=== PATIENT | female | born 1975 | race Caucasian/White ===

== ENCOUNTER 2017-07-15 16:30 | Emergency (ER) | payer OTHER ==
[~2017-07-15] VITALS: Ht 172.7 cm; Wt 68.0 kg
[~2017-07-15 16:30] MED LIST: CLIN100S VG; ESOM40CA PO; PENT100C PO; ROPI1TAB PO; TRET20GE2 TP
--- NOTE | 2017-07-15 17:46 | PHYS DOC ---
General Chief Complaint: VAGINAL BLEEDING Stated Complaint: VAGINAL BLEEDING Time Seen by MD: 17:08 Source: patient Exam Limitations: no limitations Problems: History of Present Illness Initial Comments Patient is a 41-year-old female who comes to the emergency department complaining of vaginal bleeding. Patient states that her last menstrual period ended July 04, she reports that she was off her menses 2 days then began bleeding vaginally. She states she 's had persistent bleeding since that time using multiple pads daily. States that the bleeding is different than her normal menses as it is odorless and bright red. She denies prior similar symptoms and denies any new dyspareunia or discharge otherwise stating that "sex always hurts" due to her history of vaginal prolapse and repair as well as interstitial cystitis. She follows with Kaelyn Brunner as primary care provider and for her women's care needs, follows with urologist at for her other urologic issues. She states she gets yearly Pap smears and denies history of abnormal in the past. She denies stating that she had a tubal ligation 16 years ago, she denies any other vaginal discharge, , or STI history. She reports that she is monogamous with male significant other who was present during history and physical exam. Patient admits to some "psychiatric issues" but refuses to discuss those. She denies any new abdominal pelvic or vaginal pains or discomfort. Denies any new symptoms with urination and denies any bowel symptoms. She reports a recent 40 pound weight loss she says may be due to cessation of Seroquel but is vague, states she has had decreased appetite. She admits to marijuana use but denies any controlled substances. Although she claims her symptoms are very severe after discussion of the workup and notification that high volume and ultrasound will be due to prolonged ED course her first questions are if she can eat. As I leave the exam room she grabs a pack of cigarettes from her purse and notifies me she is going outside to smoke while she waits. I explained to her that if she left the emergency department she would have to be registered again as a patient. I also advised her that this is a smoke-free campus and it is prohibited. Patient appears to be altered whether due to prescription or other types of substances in that she is tangential with pressured speech and flight of ideas. She does not slur but appears to be stimulated as she appears to have difficulty sitting still and is overly gratuitous. She is not inappropriate and I have to take her at her word regarding her symptoms. ED vitals: 98, 88, 111/64, 22, 97% room air Timing/Duration: constant Severity/Quality: severe Location: vaginal Radiation: none Activities at Onset: none Sexual [place] History: less than 2 months ago, single partner Modifying Factors: worse with movement (states that each time she stands or moves blood is expressed) Associated Symptoms: other Allergies: Coded Allergies: codeine (Verified Allergy, Intermediate, 07/15/17) latex (Verified Allergy, Intermediate, Rash, 02/24/15) Past Medical History Medical History: other (interstitial cystitis, hiatal hernia, vaginal prolapse status post sling repair with mesh, "psychiatric issues" patient refuses to discuss) Surgical History: other (cholecystectomy, tubal ligation, ovarian cystectomy, bladder sling, breast augmentation) Family History Significant Family History: other (patient states she is adopted and has no clue regarding her family medical history) Social History Smoker: cigarettes Alcohol: occasionally Drugs: none Review of Systems Constitutional: denies chills, denies diaphoresis, denies fever, denies malaise Respiratory: denies cough, denies shortness of breath Cardiovascular: denies chest pain, denies palpitations Gastrointestinal: see HPI, denies abdominal pain, denies diarrhea, denies nausea, denies vomiting Genitourinary: see HPI Musculoskeletal: denies back pain, denies joint swelling, denies neck pain Psychiatric/Neurological: see HPI Hematologic/Lymphatic: denies blood clots, denies easy bleeding, denies easy bruising Physical Exam General Appearance: WD/WN, no apparent distress HEENT: PERRL/EOMI, normal ENT inspection Neck: non-tender, supple Cardiovascular/Respiratory: normal peripheral pulses, normal breath sounds, no respiratory distress Gastrointestinal: normal bowel sounds, non tender, soft Pelvic: other (deferred initially by patient until results come back) Back: normal inspection, no CVA tenderness Extremities: normal range of motion, non-tender Neurologic/Psychiatric: 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 Denies suicidal or homicidal ideation and no apparent hallucinations), oriented x 3 Orders, Labs, Meds 1927: Time in department 2 hours 50 minutes. Labs are back hemoglobin stable 14.8, white blood cells 9.0, CBC and coags and BMP all normal. Ultrasound is pending, no urine submitted yet or sent to lab. Patient has a prolonged ED course due to high ED volume, radiology and laboratory delay. No new symptoms. PATIENT: JOE FISHMAN ACCOUNT: [id number] : 1975 LOCATION: ER AGE: 41 SEX: F EXAM STATUS: REG ER ORD. PHYSICIAN: LILIBETH RICCI DO REASON: vaginal bleeding PROCEDURE: US PELVIS W/TV Pelvic ultrasound to include transabdominal and transvaginal imaging 07/15/2017 CLINICAL HISTORY: Persistent vaginal bleeding. Negative test. TECHNIQUE: Using the distended urinary bladder as a sonographic window, a real-time ultrasound examination of the pelvis was performed. Additionally in an attempt to better evaluate the uterus and adnexa, a transvaginal ultrasound study was performed. Multiple images were obtained. FINDINGS: The uterus is within normal limits in size and echogenicity. It measures 9.0 x 4.3 x 3.8 cm in longitudinal, transverse, and AP dimensions. The endometrial echo complex measures 6 mm in thickness which is within normal limits. No focal abnormality of the uterus is seen. Small nabothian cysts are seen within the cervix which measure 2 mm in size. Both ovaries are within normal limits in size and echogenicity. The right ovary measures 2.9 x 1.4 x 1.3 cm in size. The left ovary measures 2.0 x 1.5 x 1.3 cm in size. No adnexal mass is seen. No free fluid is noted. IMPRESSION: Negative study. Electronically signed by: Andrea Samuels MD (07/15/2017 7:44 PM) [facility] DICTATED AND SIGNED BY: ANDREA SAMUELS MD DATE: 07/15/171941 CC: KAELYN MILES; LILIBETH RICCI DO ~ 2000: Urine has been submitted by the patient and sent to the lab, results are pending patient remained stable. 2012: Patient and her significant other wandering hallways and came into dictation office requesting my attention. They asked how much longer it would be before results were back. I advised them that the ultrasound results were back and normal as well as tests but has no urine was submitted for the first 3 hours of the ED course those studies were now pending. They agreed to return to their exam room and wait for results. Patient denied any new or changing symptoms. 2039: Urine studies are back, in the interim patient and her spouse come to the dictation office twice expressing the desire to leave and have had multiple staff members including in coming emergency room physician request if they were "okay to leave." Each time I advised that urine studies were pending but they can be discharged at any time. Urine studies to reveal blood with no evidence of infection, negative , and drug screen positive for amphetamines, benzodiazepines, and cannabinoids. There are urgently requesting immediate discharge and upon notification that urine studies were back I began working on discharge instructions as they have expressed that they do not need to speak with me regarding the results. As the patient was unwilling to discuss her "psychiatric issues" I am uncertain whether amphetamines or benzodiazepines are prescribed to the patient. 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 Departure Time of Disposition: 20:32 Disposition: 01 HOME, SELF-CARE Diagnosis: menorrhagia, tobacco abuse Condition: GOOD Patient Instructions: Menorrhagia, [id number], Smoking Cessation Additional Instructions: As discussed your ultrasound and blood work came back normal. Urine studies were positive for blood but no evidence of acute infection. Urine was negative urine drug screen was positive for amphetamines, benzodiazepines, and cannabinoids. If these medications are not prescribed is obviously recommended that you discontinue usage. Additionally is recommended to discontinue tobacco abuse as well as marijuana. Seek medical assistance if necessary. Your symptoms could be due to hormone imbalance or pre-menopause, or other unknown cause to be determined. No cause for further emergent evaluation or emergent condition is noted tonight in the emergency department and outpatient follow-up is recommended. Contact information for Dr. Garcia BILLING ADJUDICATOR specialist will be given by emergency department staff. Call tomorrow to schedule next available appointment for further evaluation and treatment of this nonemergent condition. Follow-up with Kaelyn Kaye in 7-10 days for recheck. Return to ED with new or changing symptoms. LILIBETH RICCI DO Jul 15, 2017 17:46
[2017-07-15 18:24] LABS: BASO % 0 % (0-3); EOS # 0.2 x10^3/uL (0.0-0.7); EOS % 2 % (0-3); HEMATOCRIT 43.1 % (36.0-47.0); HEMOGLOBIN 14.8 g/dL (12.0-15.5); LYMPH % 33 % (24-48); MEAN CORPUSCULAR HEMOGLOBIN 30 pg (25-35); MEAN CORPUSCULAR HGB CONC 34 g/dL (31-37); MEAN CORPUSCULAR VOLUME 87 fL (79-100); MONO # 0.6 x10^3/uL (0.0-1.1); MONO % 7 % (0-9); NEUT # 5.2 x10^3uL (1.8-7.7); NEUT % 57 % (31-73); PLATELET COUNT 299 x10^3/uL (140-400); RED BLOOD COUNT 4.94 x10^6/uL (3.50-5.40); RED CELL DISTRIBUTION WIDTH 14.2 % (11.5-14.5)
[2017-07-15 18:32] LABS: CALCIUM 8.9 mg/dL (8.5-10.1); CREATININE 0.7 mg/dL (0.6-1.0); GFR 91.8
--- NOTE | 2017-07-15 19:48 | RAD ---
Pelvic ultrasound to include transabdominal and transvaginal imaging 07/15/2017 CLINICAL HISTORY: Persistent vaginal bleeding. Negative test. TECHNIQUE: Using the distended urinary bladder as a sonographic window, a real-time ultrasound examination of the pelvis was performed. Additionally in an attempt to better evaluate the uterus and adnexa, a transvaginal ultrasound study was performed. Multiple images were obtained. FINDINGS: The uterus is within normal limits in size and echogenicity. It measures 9.0 x 4.3 x 3.8 cm in longitudinal, transverse, and AP dimensions. The endometrial echo complex measures 6 mm in thickness which is within normal limits. No focal abnormality of the uterus is seen. Small nabothian cysts are seen within the cervix which measure 2 mm in size. Both ovaries are within normal limits in size and echogenicity. The right ovary measures 2.9 x 1.4 x 1.3 cm in size. The left ovary measures 2.0 x 1.5 x 1.3 cm in size. No adnexal mass is seen. No free fluid is noted. IMPRESSION: Negative study. Electronically signed by: Andrea Samuels MD (07/15/2017 7:44 PM) [facility]
[2017-07-15 20:13] LABS: BILIRUBIN,URINE NEG (NEG); CLARITY,URINE HAZY; COLOR,URINE YELLOW; GLUCOSE,URINE NEG (NEG)
[2017-07-15 20:14] LABS: BACTERIA,URINE 0 /HPF (0-FEW); NITRITE,URINE NEG (NEG); RBC,URINE >40 /HPF (0-2); SQUAMOUS EPITHELIAL CELL,UR FEW /LPF; UROBILINOGEN,URINE 0.2 mg/dL (0.2 mg/dL); WBC,URINE 0 /HPF (0-4)
[2017-07-15 20:18] LABS: BARBITURATES NEG (NEG); BENZODIAZEPINES POS (NEG); CANNABINOIDS POS (NEG); COCAINE NEG (NEG); METHADONE NEG (NEG); OPIATES NEG (NEG); PHENCYCLIDINE NEG (NEG)
[2017-07-15 20:21] LABS: AMPHETAMINE/METHAMPHETAMINE POS (NEG)
[2017-07-15 20:30] VITALS: BP 124/67
[2017-07-15 20:51] LABS: U PREG PATIENT NEGATIVE (NEG)
== END 2017-07-15 20:50 | disposition home or self-care (01) ==
LOC: ER 16:30
DX: N92.0 Excessive and frequent menstruation with regular cycle (principal); F17.210 Nicotine dependence, cigarettes, uncomplicated; Z90.49 Acquired absence of other specified parts of digestive tract; Z98.51 Tubal ligation status; Z90.6 Acquired absence of other parts of urinary tract; Z88.5 Allergy status to narcotic agent; Z91.040 Latex allergy status
CPT/HCPCS: 36415; 76830; 76856; 80048; 80307; 81001; 81025; 85025; 85610; 85730; 99285-25; G0479

== ENCOUNTER → 2017-12-05 | Outpatient (CLI) | payer OTHER ==
--- NOTE | 2017-12-05 14:13 | RAD ---
Cervical spine, 5 views, 12/05/2017: History: Neck pain, radiculopathy There is straightening of the normal cervical lordosis. There is moderate disc space narrowing at C5-6 with endplate sclerosis and moderate marginal spurring. Mild disc space narrowing is present at C4-5 with mild spurring. There are mild degenerative changes involving scattered facet joints bilaterally. The combination of findings is causing right foraminal narrowing at C3-4, C4-5 and C5-6 and left foraminal narrowing at C5-6. No fracture or dislocation is identified. The prevertebral soft tissues are unremarkable. IMPRESSION: 1. Moderate multilevel degenerative change, particularly at the C5-6 level as described above. 2. No acute bony abnormality is detected.
== END | disposition home or self-care (01) ==
LOC: DXRAD 12:49
PROVIDERS: ATTEND Psychiatry & Neurology Neurology
DX: M47.892 Other spondylosis, cervical region (principal); F17.200 Nicotine dependence, unspecified, uncomplicated; F12.10 Cannabis abuse, uncomplicated
CPT/HCPCS: 72050

== ENCOUNTER → 2018-02-03 | Outpatient (CLI) | payer OTHER ==
[~2018-02-03] MED LIST changes: +IOHEXOL 240 MG/ML 50ML VIAL. ONE; +IOHEXOL 300 MG/ML 75 ML VIAL. IV ONE
--- NOTE | 2018-02-03 13:16 | RAD ---
CT Abdomen and Pelvis With Intravenous Contrast: History: Abdominal pain, nausea and vomiting. Comparison: None. Technique: After administration of oral and intravenous contrast, 75 mL Omnipaque-300, CT of the abdomen and pelvis was performed. Exposure: One or more of the following individualized dose reduction techniques were utilized for this examination: 1. Automated exposure control 2. Adjustment of the mA and/or kV according to patient size 3. Use of iterative reconstruction technique Findings: Visualized lower chest demonstrate bilateral breast implants, incompletely visualized and assessed. Liver, spleen, pancreas, and bilateral adrenal glands unremarkable. Gallbladder is absent. Mild intrahepatic and extrahepatic biliary dilatation is favored to be reservoir effect from patient's cholecystectomy. Bilateral kidneys enhance symmetrically. Interpolar region of the right kidney demonstrates 3 mm nonobstructive nephrolith. No bowel obstruction or inflammation is identified. Appendix is without evidence of inflammation. Urinary bladder is unremarkable. Uterus and adnexa unremarkable CT appearance. No free air or free fluid is seen in the abdomen or pelvis. Navel piercing is seen. There is a small fat-containing epigastric ventral hernia located approximately 1.5 cm superior to the umbilicus. Impression: 1. Small fat-containing periumbilical hernia. 2. No acute intraperitoneal process identified. 3. Nonobstructive right nephrolith. Electronically signed by: Clay Hardwick MD (02/03/2018 1:13 PM) [place] [id number]
== END | disposition home or self-care (01) ==
LOC: CT 09:27
PROVIDERS: ATTEND Surgery
DX: K43.9 Ventral hernia without obstruction or gangrene (principal); K42.9 Umbilical hernia without obstruction or gangrene; N20.0 Calculus of kidney; F17.200 Nicotine dependence, unspecified, uncomplicated
CPT/HCPCS: 74177; Q9966; Q9967

== ENCOUNTER 2020-04-24 18:53 | Emergency (ER) | payer OTHER ==
[~2020-04-24] VITALS: Ht 172.7 cm; Wt 64.0 kg
[~2020-04-24 18:53] MED LIST changes: -IOHEXOL 240 MG/ML 50ML VIAL. ONE; -IOHEXOL 300 MG/ML 75 ML VIAL. IV ONE
--- NOTE | 2020-04-24 18:57 | PHYS DOC ---
Past History Past Medical History: UTI, Other Past Surgical History: Cholecystectomy, Tubal ligation Alcohol Use: None Drug Use: Marijuana General Adult HPI: HPI: "..I am sure I have another UTI.. it hurts to pee...I ve had many...I almost have chronic cystitis...I ve had a bladder lift...and since then I require dilations ureter... and after antibiotics I need something for yeast... I usually follow with Alia...." Patient is a 44 year old female who presents with above hx and complaints of dysuria. Patient states symptoms are just like previous urinary tract infections. Patient denies any changes in behavior or meds. Patient has had previous extensive bladder lift surgery and he gets almost yearly dilations of urethra due to constriction. Patient denies any history of immunosuppression. Patient denies any severe ill contacts. No recent travel outside the [place] area. Has had 4 lifetime sex partners. No history of STDs. Does have occasional bacterial vaginosis. Does get yeast infections after taking antibiotics. Patient denies any vaginal discharge currently. Patient requesting antibiotics for her recurrent urinary tract infection. Review of Systems: Review of Systems: Constitutional: Denies fever or chills Eyes: Denies change in visual acuity HENT: Denies nasal congestion or sore throat Respiratory: Denies cough or shortness of breath Cardiovascular: Denies chest pain or edema GI: Denies abdominal pain, nausea, vomiting, bloody stools or diarrhea : Complains of dysuria Musculoskeletal: Denies back pain or joint pain Integument: Denies rash Neurologic: Denies headache, focal weakness or sensory changes Endocrine: Denies polyuria or polydipsia Lymphatic: Denies swollen glands Psychiatric: Denies depression or anxiety Heart Score: Risk Factors: Risk Factors: DM, Current or recent (<one month) smoker, HTN, HLP, family history of CAD, obesity. Risk Scores: Score 0 - 3: 2.5% MACE over next 6 weeks - Discharge Home Score 4 - 6: 20.3% MACE over next 6 weeks - Admit for Clinical Observation Score 7 - 10: 72.7% MACE over next 6 weeks - Early Invasive Strategies Family History: Family History: Noncontributory Current Medications: Current Meds: See nursing for home meds Allergies: Allergies: Allergies Coded Allergies Type Severity Reaction Last Updated Verified codeine Allergy Intermediate 07/15/17 Yes latex Allergy Intermediate Rash 02/24/15 Yes Physical Exam: PE: Constitutional: in acute distress, non-toxic appearance. [] HENT: Normocephalic, atraumatic, bilateral external ears normal, oropharynx moist, no oral exudates, nose normal. [] Eyes: PERRLA, EOMI, conjunctiva normal, no discharge. [] Neck: Normal range of motion, no tenderness, supple, no stridor. [] Cardiovascular:Heart rate regular rhythm, no murmur [] Lungs & Thorax: Bilateral breath sounds equal at apex on auscultation [] Abdomen: Bowel sounds normal, soft, no tenderness, no masses, no pulsatile masses. Old surgery scars. Mild suprapubic tenderness. Skin: Warm, dry, no erythema, no rash. [] Back: No tenderness, no CVA tenderness. [] Extremities: No tenderness, no cyanosis, no clubbing, ROM intact, no edema. [] No psoas sign Neurologic: Alert and oriented X 3, normal motor function, normal sensory function, no focal deficits noted. [] Psychologic: Affect anxious, judgement normal, mood normal. [] EKG: EKG: [] Radiology/Procedures: Radiology/Procedures: [] Course & Med Decision Making: Course & Med Decision Making Pertinent Labs and Imaging studies reviewed. (See chart for details) Patient keep follow-up with primary care. Patient push fluids. Patient push vitamin C drinks. Patient to expect urine to turn red with medication given tonight (Pyridium, }. Patient take Bactrim DS twice a day. Patient follow-up cultures. Patient return if any concerns. Patient take Tylenol or Profen for pain. After completing course of Bactrim patient to take Diflucan 100 mg daily for 3 days. Patient return if any concerns. Must follow-up. Impression: 1. Urinary tract infection [] Dragon Disclaimer: Mo Disclaimer: This electronic medical record was generated, in whole or in part, using a voice recognition dictation system. Departure Departure: Disposition: HOME/RESIDENCE PRIOR TO ADM Condition: STABLE Referrals: LATOYA MILES (PCP) Scripts Fluconazole (DIFLUCAN) 100 Mg Tablet 100 MG PO DAILY for post antibiotic for 3 Days, #3 TAB Prov: SORAYA PALMER MD 04/24/20 Sulfamethoxazole/Trimethoprim (BACTRIM DS TABLET) 1 Each Tablet 1 TAB PO BID for uti for 10 Days, #20 TAB 0 Refills Prov: SORAYA PALMER MD 04/24/20 Justification of Admission: Justification of Admission: Justification of Admission Dx: N/A Dragon Disclaimer This chart was dictated in whole or in part using Voice Recognition software in a busy, high-work load, and often noisy Emergency Department environment. It may contain unintended and wholly unrecognized errors or omissions. Dragon Disclaimer This chart was dictated in whole or in part using Voice Recognition software in a busy, high-work load, and often noisy Emergency Department environment. It may contain unintended and wholly unrecognized errors or omissions. SORAYA PALMER MD Apr 24, 2020 18:57
[2020-04-24 19:40] LABS: BARBITURATES NEG (NEG); BENZODIAZEPINES NEG (NEG); CANNABINOIDS POS (NEG); COCAINE NEG (NEG); METHADONE NEG (NEG); OPIATES NEG (NEG); PHENCYCLIDINE NEG (NEG)
[2020-04-24 19:41] LABS: AMPHETAMINE/METHAMPHETAMINE POS (NEG)
[2020-04-24 19:50] LABS: CLARITY,URINE HAZY; COLOR,URINE ORANGE
[2020-04-24 19:51] LABS: BACTERIA,URINE FEW /HPF (0-FEW); SQUAMOUS EPITHELIAL CELL,UR FEW /LPF; WBC,URINE >40 /HPF (0-4)
[2020-04-24] MEDS ORDERED: SULF1TAB24 PO (20:00)
[2020-04-24] MEDS ORDERED: cefTRIAXone IM 1 GM VIAL IM ONE (20:00)
[2020-04-24] MEDS ORDERED: SMZ/TMP 800/160MG TABLET. PO ONE (20:00)
[2020-04-24] MEDS ORDERED: PHENAZOPYRIDINE 200 MG TABLET. PO ONE (20:00)
[2020-04-24] MEDS ORDERED: FLUC100T7 PO (20:00)
[2020-04-24] MEDS ORDERED: HYDROcodon/IBUPROFEN 7.5/200MG 1 TAB TABLET PO ONE (20:00)
[2020-04-24 20:19] LABS: U PREG PATIENT NEGATIVE (NEG)
[2020-04-24 20:40] VITALS: BP 109/76
== END 2020-04-24 20:40 | disposition home or self-care (01) ==
LOC: ER 18:53
DX: N39.0 Urinary tract infection, site not specified (principal); Z87.440 Personal history of urinary (tract) infections; Z90.49 Acquired absence of other specified parts of digestive tract; Z98.51 Tubal ligation status; Z88.5 Allergy status to narcotic agent; Z91.040 Latex allergy status
CPT/HCPCS: 36415; 80307; 81001; 81025; 87086; 87491; 87591; 96372; 99284; J0696

== ENCOUNTER 2020-12-26 10:28 | Emergency (ER) | payer OTHER ==
[~2020-12-26] VITALS: Ht 172.7 cm; Wt 79.4 kg
[~2020-12-26 10:28] MED LIST changes: +FLUC100T7 PO; +SULF1TAB24 PO
[2020-12-26 10:37] VITALS: BP 136/82
[2020-12-26] MEDS ORDERED: METH-38 PO (11:58)
[2020-12-26] MEDS ORDERED: PRED50TA PO (11:58)
--- NOTE | 2020-12-26 11:58 | PHYS DOC ---
Past History Past Medical History: UTI, Other Additional Past Medical Histor: DDD Past Surgical History: Cholecystectomy, Tubal ligation, Other Additional Past Surgical Histo: hernia repair, breast agumentation, stomach surgery Alcohol Use: None Drug Use: Marijuana Adult General Chief Complaint Chief Complaint: BACK PAIN OR INJURY [facility] HPI Patient is a 45-year-old female who presents to the emergency room complaining of lower back pain. Patient has a history of degenerative joint disease. She has been helping a friend move but has not been lifting heavy objects. She states that she has been dealing with this pain for the last 3 days and it has progressively gotten worse. She has been taking Aleve at home without any kind of relief. She is never seen orthopedic surgeon or neurosurgeon for this pain previously. She denies any difficulty with incontinence or urinary retention. She does not have any numbness. Pain does not radiate. Review of Systems Review of Systems Complete ROS is negative unless otherwise documented in HPI Current Medications Current Medications Current Medications Medications (Trade) Dose Ordered Sig/Ezequiel Start Time Stop Time Status Last Admin Dose Admin Ketorolac Tromethamine (Toradol Im) 60 mg 1X ONCE 12/26/20 12:00 12/26/20 12:01 Methocarbamol (Robaxin) 500 mg 1X PRN 12/26/20 12:00 Allergies Allergies Allergies Coded Allergies Type Severity Reaction Last Updated Verified codeine Allergy Intermediate 07/15/17 Yes latex Allergy Intermediate Rash 12/26/20 Yes Physical Exam Physical Exam General: Awake, alert, NAD. Well Nourished, well hydrated. Cooperative HEENT: Atraumatic, EOMI, PERRL, airway patent, moist oral mucosa Neck: Supple, trachea midline Respiratory: CTA bilaterally, normal effort, no wheezing/crackles CV: RRR, no murmur, cap refill <2 GI: Soft, nondistended, nontender, no masses MSK: No obvious deformities Skin: Warm, dry, intact Neuro: A&O x3, speech NL, sensory and motor grossly intact, no focal deficits, normal gait Psych: Normal affect, normal mood, not suicidal or homicidal Current Patient Data Vital Signs Vital Signs Date Time Temp Pulse Resp B/P (MAP) Pulse Ox O2 Delivery O2 Flow Rate FiO2 12/26/20 10:37 97.2 93 16 136/82 (100) 96 Room Air EKG EKG [] Radiology/Procedures Radiology/Procedures [] Heart Score C/O Chest Pain: N/A Risk Factors: Risk Factors: DM, Current or recent (<one month) smoker, HTN, HLP, family history of CAD, obesity. Risk Scores: Risk Factors: DM, Current or recent (<one month) smoker, HTN, HLP, family history of CAD, obesity. Course & Med Decision Making Course & Med Decision Making Pertinent Labs and Imaging studies reviewed. (See chart for details) Patient is a 45-year-old female who presents to the Emergency room with non- traumatic back pain. Patient denies bowel incontinence, urinary retention, fever, numbness, weakness. On exam, patient does not have a neurologic deficits, saddle anesthesia, gait difficulty, signs of trauma, or wounds near area of pain. Patient does not have a history of cancer or prolonged steroid use. At this time, patient does not have any signs, symptoms, or risk factors of emergent causes of back pain making cauda equina, spinal abscess, transverse myelitis, fractures, and other causes of emergent back pain highly unlikely. At this time, patient does not need any further work up for their back pain and will be treated symptomatically. Patient's test results and vitals while in the ED were fully reviewed and discussed with the patient. Patient is stable and at this time does not need admission to the hospital. We have discussed strict return precautions and the importance of following up with their Primary Care Physician. Patient stated understanding and was given an opportunity to ask any questions. Patient is in agreement with plan. Dragon Disclaimer Dragon Disclaimer This electronic medical record was generated, in whole or in part, using a voice recognition dictation system. Departure Departure: Impression: Primary Impression: Low back pain Disposition: 01 DC HOME SELF CARE/HOMELESS Condition: STABLE Referrals: LATOYA MILES (PCP) GILBERT LIGHT MD Patient Instructions: Low Back Sprain with [facility] Scripts Prednisone (PREDNISONE) 50 Mg Tablet 1 TAB PO DAILY for inflammation, #4 TAB You received this medication in the emergency room today. You will starting your next dose tomorrow. Prov: DARIAN OTT MD 12/26/20 Methocarbamol (ROBAXIN-750) 750 Mg Tablet 1 TAB PO BID PRN for PAIN for 10 Days, #20 TAB 0 Refills Prov: DARIAN OTT MD 12/26/20 DARIAN OTT MD Dec 26, 2020 11:58
[2020-12-26] MEDS ORDERED: KETOROLAC 60 MG/2 ML VIAL. IM ONE (12:00)
[2020-12-26] MEDS ORDERED: METHOCARBAMOL 500 MG TABLET PO PRN (12:00)
[2020-12-26] MEDS ORDERED: SUMA100T4 PO (12:12)
[2020-12-26] MEDS ORDERED: METHOCARBAMOL 500 MG TABLET PO ONE (12:15)
== END 2020-12-26 12:34 | disposition home or self-care (01) ==
LOC: ER 10:28
DX: M54.5 Low back pain (principal); Z87.440 Personal history of urinary (tract) infections; Z90.49 Acquired absence of other specified parts of digestive tract; Z98.51 Tubal ligation status; Z98.890 Other specified postprocedural states; Z88.5 Allergy status to narcotic agent; Z91.040 Latex allergy status
CPT/HCPCS: 96372; 99283; J1885

== ENCOUNTER → 2021-04-12 | Outpatient (CLI) | payer OTHER ==
[~2021-04-12] MED LIST changes: +METH-38 PO; +PRED50TA PO; +SUMA100T4 PO
--- NOTE | 2021-04-12 11:19 | RAD ---
INDICATION: Reason: SHORTNESS OF BREATH, COUGH TIMES 3 WEEKS. HX OF PNEUMONIA / Spl. Instructions: / History: COMPARISON: None. FINDINGS: 2 view of chest obtained. Degenerative changes of the spine with osteophyte formation. Cardiac silhouette unremarkable. No definite focal airspace consolidation or edema. IMPRESSION: * No focal airspace consolidation or edema. Electronically signed by: Narendra Mac MD (04/12/2021 11:17 AM) [id number]
== END ==
LOC: RAD 10:47
PROVIDERS: ATTEND Physician Assistant
DX: J40 Bronchitis, not specified as acute or chronic (principal); M25.78 Osteophyte, vertebrae
CPT/HCPCS: 71046

== ENCOUNTER 2021-04-22 02:15 | Emergency (ER) | payer OTHER ==
[~2021-04-22] VITALS: Ht 172.7 cm; Wt 79.4 kg
--- NOTE | 2021-04-22 02:51 | PHYS DOC ---
Past History Past Medical History: UTI, Other Additional Past Medical Histor: DDD, RUPTURED IMPLANT, INTERSTITIAL CYSTITIS Past Surgical History: Cholecystectomy, Tubal ligation, Other Additional Past Surgical Histo: hernia repair, breast agumentation, stomach surgery, URETHRA STRETCHED Alcohol Use: None Drug Use: Marijuana General Adult EDM: Chief Complaint: COUGH HPI: HPI: 45-year-old female presents with persistent cough. The patient was diagnosed with COVID-19 about 7 days ago. She comes in tonight because she cannot get the cough under control and is unable to fall asleep. She was not vaccinated. She denies significant shortness of breath, chest nonstop cough. No fever or chills. Review of Systems: Review of Systems: Constitutional: Denies fever or chills Eyes: Denies change in visual acuity HENT: Denies nasal congestion or sore throat Respiratory: Cough without shortness of breath Cardiovascular: Denies chest pain or edema GI: Denies abdominal pain, nausea, vomiting, bloody stools or diarrhea : Denies dysuria Musculoskeletal: Denies back pain or joint pain Integument: Denies rash Neurologic: Denies headache, focal weakness or sensory changes Endocrine: Denies polyuria or polydipsia Lymphatic: Denies swollen glands Psychiatric: Denies depression or anxiety Current Medications: Current Meds: Current Medications Medications (Trade) Dose Ordered Sig/Ezequiel Start Time Stop Time Status Last Admin Dose Admin Benzonatate (Tessalon Perle) 200 mg 1X ONCE 04/22/21 03:00 04/22/21 03:01 UNV Allergies: Allergies: Allergies Coded Allergies Type Severity Reaction Last Updated Verified codeine Allergy Intermediate 07/15/17 Yes latex Allergy Intermediate Rash 12/26/20 Yes Physical Exam: PE: Constitutional: Well developed, well nourished, no acute distress, non-toxic appearance. [] HENT: Normocephalic, atraumatic, bilateral external ears normal, oropharynx moist, no oral exudates, nose normal. [] Eyes: PERRLA, EOMI, conjunctiva normal, no discharge. [] Neck: Normal range of motion, no tenderness, supple, no stridor. [] Cardiovascular: Heart rate 94, regular rhythm, no murmur [] Lungs & Thorax: Frequent coughing [] Abdomen: Bowel sounds normal, soft, no tenderness, no masses, no pulsatile masses. [] Skin: Warm, dry, no erythema, no rash. [] Back: No tenderness, no CVA tenderness. [] Extremities: No tenderness, no cyanosis, no clubbing, ROM intact, no edema. [] Neurologic: Alert and oriented X 3, normal motor function, normal sensory functi on, no focal deficits noted. [] Psychologic: Affect normal, judgement normal, mood normal. [] Current Patient Data: Vital Signs: Vital Signs Date Time Temp Pulse Resp B/P (MAP) Pulse Ox O2 Delivery O2 Flow Rate FiO2 04/22/21 02:41 98.3 93 18 175/75 96 Room Air EKG: EKG: [] Radiology/Procedures: Radiology/Procedures: [] Impressions: EXAMINATION: Chest radiograph. VIEWS: Single view COMPARISON: 04/12/2021 INDICATION:45 years, Female, cough and congestion. FINDINGS: Normal cardiomediastinal silhouette. No focal consolidation. No pleural effusion or pneumothorax. No acute osseous process. Surgical clips in the left upper abdomen. IMPRESSION: No acute cardiopulmonary process. Electronically signed by: Bryanna Timmons MD (04/22/2021 3:10 AM) [facility] DICTATED AND SIGNED BY: BRYANNA TIMMONS MD DATE: 04/22/21309 CC: OLAF QUINTANA DO; MULU FORBES IA ~MTH0 0 Heart Score: C/O Chest Pain: N/A Risk Factors: Risk Factors: DM, Current or recent (<one month) smoker, HTN, HLP, family history of CAD, obesity. Risk Scores: Score 0 - 3: 2.5% MACE over next 6 weeks - Discharge Home Score 4 - 6: 20.3% MACE over next 6 weeks - Admit for Clinical Observation Score 7 - 10: 72.7% MACE over next 6 weeks - Early Invasive Strategies Course & Med Decision Making: Course & Med Decision Making Pertinent Labs and Imaging studies reviewed. (See chart for details) The patient's chest x-ray she is unremarkable. I have given her 200 mg of Tessalon Perles for her cough. She is allergic to codeine so I cannot give her cough syrup. The Tessalon Perles have helped a little bit. I will give her a prescription for the same. I will additionally give her 25 mg of Benadryl in the ED. She is stable for discharge at this time. [] Karthikon Disclaimer: Mo Disclaimer: This electronic medical record was generated, in whole or in part, using a voice recognition dictation system. Departure Departure: Impression: Primary Impression: COVID-19 Disposition: 01 HOME / SELF CARE / HOMELESS Condition: STABLE Referrals: MULU FORBES (PCP) Additional Instructions: You have been tested for or diagnosed with COVID-19. It is an infection caused by a new type of coronavirus. COVID-19 will cause cold-like or mild flu symptoms in most. It can cause more severe symptoms like problems breathing in some. There is no treatment for COVID-19. The body will clear the infection over time. Self-care will help to ease discomfort. Steps to Take: Self-Care Rest as needed. Healthy habits may help you feel better. Steps include: Choose healthy foods including fruits and vegetables. Drink water throughout the day. Get plenty of sleep each night. If you smoke, try to quit. It may ease breathing. Avoid alcohol. Keep Others Healthy The virus can spread to others. Droplets are released every time you sneeze or cough. The droplets can get into the mouth, nose, or eyes of people near you and lead to infection. To lower the chances of spreading COVID-19 to others: Stay at home until your doctor has said it is safe to leave. If you tested positive this will mean staying isolated until both of the following are true: At least 7 days have passed since the start of illness. You are free of fever for at least 72 hours without the use of medicine. During this time: - Avoid public areas, events, or transportation. Do not return to work or school until your doctor has said it is safe to do so. - Call ahead if you need to go to a medical center. Let them know you may have COVID-19. It will help them guide you where to go. They may also ask you to wear a facemask when you come to the office. - If you call for emergency medical services, let them know you may have COVID- 19. While at home: - Try to avoid close contact with others. Stay about 6 feet away. - If possible, spend most of your time in a separate room from others. - Use a face mask if you will be in close contact with others such as sharing a room or vehicle. - Have someone wipe down common surfaces in the home. Use household data communications engineer every day on areas like doorknobs, counters, or sinks. - Cough or sneeze into a tissue. Throw the tissue away right after use. If a tissue is not available, cough or sneeze into your elbow. - Wash your hands often. Wash them after sneezing or coughing. Use soap and water and wash for at least 20 seconds. Alcohol based hand bus cleaner can be used if soap and water is not available. - Do not prepare food for others. Avoid sharing personal items like forks, spoo ns, or toothbrushes. - Avoid close contact with pets while you are sick. There is no evidence of the virus passing to pets. This is a safety step until more is known about this virus. Isolation can be frustrating. Social interaction can help. Keep in touch with friends and family through phone and tech options. You can still interact with others in your home, just keep a safe distance of about 6 feet. Follow-up: Your doctors office will check in with you to see if there are any changes in your health. You may be asked to keep track of symptoms to share with them. They will also let you know when you are clear to be in public again. Problems to Look Out For: Contact your doctor if your recovery is not going as you expect. Get emergency care if you have problems such as: - Trouble breathing - Nonstop chest pain or pressure - Changes in awareness, confusion, or problems waking - Lips or face have bluish color - Worsening of symptoms If you think you have an emergency, call for emergency medical services right away. [facility] Benzonatate (TESSALON PERLE) 100 Mg Capsule 1 CAP PO TID PRN for COUGH, #30 CAP Prov: OLAF QUINTANA DO 04/22/21 OLAF QUINTANA DO Apr 22, 2021 02:51
--- NOTE | 2021-04-22 03:12 | RAD ---
EXAMINATION: Chest radiograph. VIEWS: Single view COMPARISON: 04/12/2021 INDICATION:45 years, Female, cough and congestion. FINDINGS: Normal cardiomediastinal silhouette. No focal consolidation. No pleural effusion or pneumothorax. No acute osseous process. Surgical clips in the left upper abdomen. IMPRESSION: No acute cardiopulmonary process. Electronically signed by: Sridhar Timmons MD (04/22/2021 3:10 AM) [facility]
[2021-04-22] MEDS ORDERED: BENZONATATE 100 MG CAPSULE. PO ONE (03:30)
[2021-04-22] MEDS ORDERED: BENZ100C PO (03:53)
[2021-04-22 03:55] VITALS: BP 106/57
== END 2021-04-22 03:59 | disposition home or self-care (01) ==
LOC: ER 02:15
DX: U07.1 COVID-19 (principal); F12.10 Cannabis abuse, uncomplicated; Z88.5 Allergy status to narcotic agent; Z91.040 Latex allergy status; Z90.49 Acquired absence of other specified parts of digestive tract; Z98.51 Tubal ligation status
CPT/HCPCS: 71045; 99283

== ENCOUNTER → 2021-11-21 | Outpatient (CLI) | payer OTHER ==
[~2021-11-21] MED LIST changes: +BENZ100C PO
--- NOTE | 2021-11-21 14:55 | RAD ---
XR CHEST 2V INDICATION: CHEST PAIN, SWOLLEN LYMPH NODES COMPARISON STUDY: 04/22/2021. FINDINGS: Lungs: Normal lung volume. No pulmonary mass or consolidation. The tracheobronchial tree and hilar st ructures are normal. Pleura: No pleural effusion or pneumothorax. Heart and Mediastinum: The cardiomediastinal silhouette is normal. The great vessels of the thorax ar e normal. Bones and Soft Tissues: Degenerative changes of the spine. IMPRESSION: No acute cardiopulmonary process. Electronically signed by: Gadiel Rousseau MD (11/21/2021 2:52 PM) [id number]
== END ==
LOC: RAD 13:17
PROVIDERS: ATTEND Physician Assistant
DX: R07.9 Chest pain, unspecified (principal); M47.819 Spondylosis without myelopathy or radiculopathy, site unspecified
CPT/HCPCS: 71046